=== PATIENT | male | born 1970 | race Caucasian/White ===

== ENCOUNTER 2016-12-18 14:12 | Emergency (ER) | payer MEDICAID ==
[2016-12-18] MEDS ORDERED: Haloperidol Lactate 5 MG/ML SDV IM ONE (15:07)
[2016-12-18] MEDS ORDERED: hydrOXYzine HCl 50 MG/ML SDV IM ONE ×2 (15:08→15:34)
--- NOTE | 2016-12-18 15:14 | EDM.PDOC ---
ED HPI GENERAL MEDICAL PROBLEM - General Chief Complaint: Behavioral/Psych Stated Complaint: NOT FEELING WELL EMOTIONALLY Time Seen by Provider: 12/18/16 14:30 Source of Information: Reports: Patient History Limitations: Reports: No Limitations - History of Present Illness INITIAL COMMENTS - FREE TEXT/NARRATIVE: c/o anxious anxious today, tearful, says he feels lonely, his daughter lives with his ex- in the [facility], not working here with his mother told RN and myself that he did not take any meds, however iSTOP indicates 60 fills controlled meds in 2017, last fill 4d ago pt then said he sees psychiatrist Dr Som Rivera in [place] who weaned him down from his Ativan QID to TID, now also says he is on Lexapro 20 mg daily last time in hospital 1y ago in [place] overnight denies SI/HI to RN and myself, not interested in a voluntary hospital admission will give Haldol (has had dx psychosis in the past) and Vistaril here - Related Data Allergies Allergy/AdvReac Type Severity Reaction Status Date / Time metoclopramide HCl Allergy Unknown unknown Verified 12/18/16 14:30 [From Reglan] prochlorperazine edisylate Allergy Unknown unknown Verified 12/18/16 14:30 [From Compazine] prochlorperazine maleate Allergy Unknown unknown Verified 12/18/16 14:30 [From Compazine] morphine Allergy Itching Verified 12/18/16 14:30 Home Meds: Home Meds cloNIDine [Catapres] 0.1 mg PO Q12HR #10 tablet 12/18/16 [Rx] Past Medical History - Past Health History Medical/Surgical History: Denies Medical/Surgical History Other Musculoskeletal History: back laminectomy 1999, wrist/ jaw fractures with surgical wire repair. Social & Family History - Tobacco Use Smoking Status *Q: Never Smoker - Caffeine Use Caffeine Use: Reports: None - Recreational Drug Use Recreational Drug Use: No ED ROS GENERAL - Review of Systems Review Of Systems: See Below Constitutional: Reports: No Symptoms HEENT: Reports: No Symptoms Respiratory: Reports: No Symptoms Cardiovascular: Reports: No Symptoms Endocrine: Reports: No Symptoms GI/Abdominal: Reports: No Symptoms : Reports: No Symptoms Musculoskeletal: Reports: No Symptoms Skin: Reports: No Symptoms Neurological: Reports: No Symptoms Psychiatric: Reports: Anxiety Hematologic/Lymphatic: Reports: No Symptoms Immunologic: Reports: No Symptoms ED EXAM, GENERAL - Physical Exam Exam: See Below Exam Limited By: No Limitations General Appearance: Alert, WD/WN, Mild Distress Neck: Normal Inspection, Supple, Non-Tender, Full Range of Motion Respiratory/Chest: No Respiratory Distress, Lungs Clear, Normal Breath Sounds, No Accessory Muscle Use Cardiovascular: Regular Rate, Rhythm, No Edema, No Gallop, No JVD, No Murmur, No Rub GI/Abdominal: Soft, Non-Tender Extremities: Normal Range of Motion, Non-Tender, No Pedal Edema Neurological: Alert, Oriented, CN II-XII Intact, No Motor/Sensory Deficits Psychiatric: Anxious, Tearful, Other (no SI/HI, somewhat agitated) Lymphatic: No Adenopathy Course - Vital Signs Last Recorded V/S: Last Vital Signs Temp 36.8 C 12/18/16 14:15 Pulse 84 12/18/16 14:15 Resp 18 12/18/16 14:15 BP 145/90 H 12/18/16 15:24 Pulse Ox 100 12/18/16 14:15 - Orders/Labs/Meds Orders: Active Orders 24 hr Category Date Time Status hydrOXYzine HCl [Vistaril] Med 12/18/16 15:34 Once 25 mg IM ONETIME ONE Meds: Medications Discontinued Medications Generic Name Dose Route Start Last Admin Trade Name Whit PRN Reason Stop Dose Admin Clonidine HCl 0.1 mg 12/18/16 15:18 12/18/16 15:24 Catapres PO 12/18/16 15:19 0.1 mg ONETIME ONE Administration Haloperidol Lactate 1 mg 12/18/16 15:07 Haldol IM 12/18/16 15:08 ONETIME ONE Hydroxyzine HCl 50 mg 12/18/16 15:08 Vistaril IM 12/18/16 15:09 ONETIME ONE - Re-Assessments/Exams Free Text/Narrative Re-Assessment/Exam: 12/18/16 15:34 pt declined Haldol saying it made him "twitchy" when he was younger, did agree to lower dose of Vistaril 25 mg IM, requested Catapres which Dr Rivera has had him on in the past, did calm down quite a bit just by talking Departure - Departure Time of Disposition: 15:35 Disposition: Home, Self-Care 01 Condition: good Clinical Impression: Anxiety, Panic disorder - Discharge Information Prescriptions: cloNIDine [Catapres] 0.1 mg PO Q12HR #10 tablet Instructions: Panic Attacks, [id number] Referrals: PCP,None [Primary Care Provider] - Forms: ED Department Discharge Additional Instructions: Continue your current meds. Take clonidine (Catapres) 0.1 mg 1 tab tonight then twice a day tomorrow. Call Dr Rivera in the morning for further instructions. See Dr Rivera in the next 1-2 days. Call your Physician or Return to Emergency Department if: * Your condition worsens in any way. * You develop fever greater than 100.4. * You have vomitting that does not stop with medications. * You have pain that is not controlled with medications. - My Orders Last 24 Hours: My Active Orders 12/18/16 15:34 hydrOXYzine HCl [Vistaril] 25 mg IM ONETIME ONE - Assessment/Plan Last 24 Hours: My Active Orders 12/18/16 15:34 hydrOXYzine HCl [Vistaril] 25 mg IM ONETIME ONE
[2016-12-18] MEDS ORDERED: cloNIDine 0.1 MG Tab PO ONE (15:18)
[2016-12-18 15:53] VITALS: BP 140/75
== END 2016-12-18 15:45 | disposition home or self-care (01) ==
LOC: FB.ED 14:12
DX: F41.0 Panic disorder [episodic paroxysmal anxiety] (principal); Z88.8 Allergy status to other drugs, medicaments and biological substances
CPT/HCPCS: 96372; 99283; A9270; J3410